=== PATIENT | female | born 1960 | race Caucasian/White ===

== ENCOUNTER 2019-03-07 13:39 | Outpatient (CLI) | payer BC ==
[2019-03-07] MEDS ORDERED: PANT40TA5 PO (14:08)
[2019-03-07] MEDS ORDERED: ESCI10TA PO (14:08)
[2019-03-07] MEDS ORDERED: AMLO-150 PO (14:08)
[2019-03-07] MEDS ORDERED: LOSA100T14 PO (14:08)
[2019-03-07] MEDS ORDERED: MONT10TA6 PO (14:08)
[2019-03-07] MEDS ORDERED: TRIA1TAB3 PO (14:08)
[2019-03-07 14:36] LABS: BASOPHILS # (AUTO) 0.03 x10^3/uL (0-0.1); BASOPHILS % (AUTO) 1 % (0-1); EOSINOPHILS # (AUTO) 0.09 x10^3/uL (0-0.4); EOSINOPHILS % (AUTO) 2 % (1-7); LYMPHOCYTES # (AUTO) 1.03 x10^3/uL (1-3.4); LYMPHOCYTES % (AUTO) 22 % (22-44); MD NO; MEAN CORPUSCULAR HGB CONC 34.1 g/dL (32.4-35.8); MEAN CORPUSCULAR VOLUME 96.9 fL (80-100); MEAN PLATELET VOLUME 7.3 fL (7.4-10.4); MONOCYTES # (AUTO) 0.47 x10^3/uL (0.2-0.8); MONOCYTES % (AUTO) 10 % (2-9); NEUTROPHILS # (AUTO) 2.98 x10^3/uL (1.8-6.8); NEUTROPHILS % (AUTO) 65 % (42-75); PLATELET COUNT 226 x10^3/uL (130-400); RED BLOOD COUNT 4.02 x10^6/uL (3.82-5.3); RED CELL DISTRIBUTION WIDTH 13.4 % (9.6-15.2)
[2019-03-07 14:45] LABS: ALANINE AMINOTRANSFERASE 37 U/L (12-78); ANION GAP 6 mmol/L (5-15); CALCIUM 9.2 mg/dL (8.5-10.1); CHLORIDE 106 mmol/L (98-107); CREATININE 0.96 mg/dL (0.55-1.02); INTERNATIONAL NORMALIZED RATIO 0.95 (0.93-1.1)
[2019-03-07 14:47] LABS: ALKALINE PHOSPHATASE 60 U/L (45-117); BILIRUBIN,TOTAL 0.6 mg/dL (0.2-1.0); TOTAL PROTEIN 7.5 g/dL (6.4-8.2)
== END 2019-03-07 23:59 | disposition home or self-care (01) ==
LOC: STAR 13:39
PROVIDERS: ATTEND Specialist
DX: Z01.818 Encounter for other preprocedural examination (principal)
CPT/HCPCS: 36415; 80053; 85025; 85610; 85730

== ENCOUNTER 2019-03-14 09:05 | Day surgery (SDC) | payer BC ==
[~2019-03-14] VITALS: Ht 149.9 cm; Wt 73.4 kg
[~2019-03-14 09:05] MED LIST: ACETIC ACID 0.25% IRRIG ONE; AMLO-150 PO; BUPIVACAINE/PF 0.25% ONE; EPINEPHRINE 1 MG/ML, 1ML ONE; ESCI10TA PO; LOSA100T14 PO; MONT10TA6 PO; PANT40TA5 PO; SILVER SULF. CRM 1% , 25GM ONE; TRIA1TAB3 PO
[2019-03-14] MEDS ORDERED: LACTATED RINGERS 1,000 ML IV SCH (10:17)
[2019-03-14 10:21] VITALS: BP 154/91
[2019-03-14] MEDS ORDERED: FENTANYL PF 100 MCG/2ML ONE (11:16)
[2019-03-14] MEDS ORDERED: MIDAZOLAM 1 MG/ML, 2ML ONE (11:16)
[2019-03-14] MEDS ORDERED: SCOPOLAMINE PATCH, 1.5MG PATCH.TD72 TD ONE ×2 (11:33→12:00)
[2019-03-14] MEDS ORDERED: CEFAZOLIN 1,000 MG ONE (11:47)
[2019-03-14] MEDS ORDERED: PROPOFOL 10 MG/ML, 20ML ONE (11:47)
[2019-03-14] MEDS ORDERED: SUCCINYLCHOLINE 20 MG/ML, 10ML ONE (11:47)
[2019-03-14] MEDS ORDERED: DEXAMETHASONE 4 MG/ML, 1ML ONE (11:47)
[2019-03-14] MEDS ORDERED: ROCURONIUM 10MG/ML,5ML ONE (11:47)
[2019-03-14] MEDS ORDERED: ONDANSETRON 2MG/ML, 2ML ONE (11:47)
[2019-03-14] MEDS ORDERED: BUPIVACAINE/PF-EPI 0.25% 1:200K INFIL ONE (12:15)
[2019-03-14] MEDS ORDERED: ONDANSETRON 2MG/ML, 2ML IVPush PRN (12:30)
[2019-03-14] MEDS ORDERED: hydrALAzine 20 MG/ML, 1ML IV PRN (12:30)
[2019-03-14] MEDS ORDERED: LABETALOL 5MG/ML, 20ML IV PRN (12:30)
[2019-03-14] MEDS ORDERED: HYDROmorphone 1 MG/ML, 1ML INJ IV PRN (12:30)
[2019-03-14] MEDS ORDERED: PROMETHAZINE 25 MG/ML, 1ML IV PRN (12:30)
[2019-03-14] MEDS ORDERED: METOCLOPRAMIDE 5 MG/ML, 2ML IV PRN (12:30)
[2019-03-14] MEDS ORDERED: FENTANYL PF 100 MCG/2ML IV PRN (12:30)
[2019-03-14] MEDS ORDERED: KETOROLAC 30 MG/1 ML IV PRN (12:30)
[2019-03-14] MEDS ORDERED: ALBUTEROL SULFATE 2.5 MG/3 ML NPPB PRN (12:30)
[2019-03-14] MEDS ORDERED: OXYcodone 5 MG/5 ML ORAL.SOL UDC PO PRN (12:30)
[2019-03-14] MEDS ORDERED: MEPERIDINE/PF 25MG/0.5ML IVPush PRN (12:30)
[2019-03-14] MEDS ORDERED: OXYcodone 5 MG/5 ML ORAL.SOL UDC ONE (12:41)
== END 2019-03-14 14:15 | disposition home or self-care (01) ==
LOC: OUT 09:05
PROVIDERS: ATTEND Specialist
DX: K62.89 Other specified diseases of anus and rectum (principal); K21.9 Gastro-esophageal reflux disease without esophagitis; Z85.828 Personal history of other malignant neoplasm of skin; Z90.710 Acquired absence of both cervix and uterus; Z98.890 Other specified postprocedural states; Z72.89 Other problems related to lifestyle
CPT/HCPCS: 46922; 88305; J0171; J0330; J0690; J1100; J2250; J2405; J2704; J3010; J3490; J7120